=== PATIENT | male | born 1995 | race Caucasian/White ===

== ENCOUNTER 2019-09-18 06:52 | Emergency (ER) | payer MEDICAID ==
[~2019-09-18] VITALS: Ht 170.2 cm; Wt 83.9 kg
[2019-09-18] MEDS ORDERED: MEDROL DOSPAK21 TA1 PO (07:19)
[2019-09-18 07:33] VITALS: BP 134/88
== END 2019-09-18 07:35 | disposition home or self-care (01) ==
LOC: M.ERS 06:52
DX: L25.9 Unspecified contact dermatitis, unspecified cause (principal); B88.8 Other specified infestations; Z88.8 Allergy status to other drugs, medicaments and biological substances